=== PATIENT | male | born 1945 | race Caucasian/White ===

== ENCOUNTER 2018-01-02 20:33 | Inpatient (IN) | payer MEDICARE, MEDICAID ==
[~2018-01-02] VITALS: Ht 175.3 cm; Wt 54.4 kg
[2018-01-02] MEDS ORDERED: MAG HYDROX/AL HYDROX/SIMETH 30 ML UDC PO PRN (21:00)
[2018-01-02] MEDS ORDERED: ACETAMINOPHEN 325 MG TABLET PO PRN (21:00)
[2018-01-02] MEDS ORDERED: MAGNESIUM HYDROXIDE 30 ML UDC PO PRN (21:00)
[2018-01-02] MEDS ORDERED: LORAZEPAM 0.5 MG TABLET PO PRN (21:00)
--- NOTE | 2018-01-02 21:00 | NUR ---
ADMITTED A 72 Y/O MALE FROM [facility], ON 5150 HOLD DTS, PER HOLD PATIENT TOOK 40 NORCO PILLS. PATIENT STATED "I HAVE BEEN FEELING VERY DEPRESSED ABOUT ALL THE SURGERIES I HAVE TO FACE. I DO NOT WANT TO FACE THEM SO I ATTEMPTED TO KILL MYSELF". PATIENT ADMITTING DX. OF DEPRESSION AND MEDICAL DX. 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 PATIENT ARRIVE VIA GURNEY WITH 2 PERSONS ASSIST. PATIENT IS AMBULATORY WITH ASSISTANCE. UPON FACE TO FACE EVALUATION, PATIENT APPEARED ALERT AND ORIENTED X 3-4, CALM, COOPERATIVE, APPEARED DEPRESSED AND SAD. PATIENT STATED THAT HE DID IT BECAUSE HE WAS OVERWHELMED WITH EVERYTHING, HE WAS PANICKED AND HAS TOO MUCH STRESS, PATIENT CONTRACTED FOR SAFETY, DENIES SI AT THIS TIME, PATIENT COOPERATIVE WITH BODY CHECK, PICTURES AND SIGN PAPER WORKS. PATIENT HAS NO SOB, NO ACUTE DISTRESS, BREATHING EVEN AND UNLABORED, DENIES PAIN AND DISCOMFORT, BELONGINGS CHECK FOR CONTRABAND, NOTIFIED DR. VASQUEZ AND MANAGER INTEL AMANDA TO RECONCILE THE MEDICATION. ALL NEEDS ATTENDED ND MET, WILL CONTINUE TO MONITOR [id number] FOR SAFETY
[2018-01-02] MEDS ORDERED: NICO1PAT35 TD (21:06)
[2018-01-02] MEDS ORDERED: HYDR-552 PO (21:06)
[2018-01-02] MEDS ORDERED: FAMO-131 PO (21:06)
[2018-01-02] MEDS ORDERED: LACT-246 PO (21:06)
[2018-01-02] MEDS ORDERED: MULT1TAB73 PO (21:06)
[2018-01-02] MEDS ORDERED: OXYC5CAP18 PO (21:06)
[2018-01-02] MEDS ORDERED: DOCU-141 PO (21:06)
[2018-01-02] MEDS ORDERED: LEVO137T24 PO (21:06)
[2018-01-02] MEDS ORDERED: TAMS-12 PO (21:06)
[2018-01-02] MEDS ORDERED: DOCUSATE SODIUM 100 MG CAPSULE PO SCH (22:30)
[2018-01-02] MEDS: ZOLPIDEM TARTRATE 10 MG TABLET PO PRN (22:48)
[2018-01-02 23:08] VITALS: BP 119/67
[2018-01-03] MEDS: HYDROCODONE/APAP 5/325MG 1 EACH TABLET PO PRN ×3 (01:56→22:00)
[2018-01-03 06:45] LABS: BASOPHILS % (AUTO) 0.2 % (0.0-2.0); EOSINOPHILS % (AUTO) 2.4 % (0.0-6.0); HEMATOCRIT 36 % (39-51); HEMOGLOBIN 11.6 g/dL (13.5-17.5); LYMPHOCYTES # (AUTO) 1.8 /CMM (0.8-4.8); LYMPHOCYTES % (AUTO) 21.5 % (20.0-44.0); MEAN CORPUSCULAR HEMOGLOBIN 32 PG (26.0-33.0); MEAN CORPUSCULAR HGB CONC 32 g/dl (31.0-36.0); MEAN CORPUSCULAR VOLUME 98 fL (80-96); MONOCYTES # (AUTO) 0.6 /CMM (0.1-1.30); MONOCYTES % (AUTO) 6.6 % (2.0-12.0); NEUTROPHILS % (AUTO) 69.3 % (43.0-81.0); PLATELET COUNT (AUTO) 249 /CMM (150-450); RDW COEFFICIENT OF VARIATION 14.8 (11.5-15.0); WHITE BLOOD COUNT (AUTO) 8.6 K/uL (4.3-11.0)
[2018-01-03 06:52] LABS: CHOLESTEROL 122 mg/dL (<200); HDL CHOLESTEROL 44 mg/dL (40-60); LDL 64 mg/dL (0-99); TRIGLYCERIDES 117 mg/dL (30-150)
[2018-01-03 06:53] LABS: ALBUMIN 2.5 g/dL (3.4-5.0); BILIRUBIN,TOTAL 0.3 mg/dL (0.2-1.0); CALCIUM, SERUM 8.1 mg/dL (8.5-10.1); CREATININE 0.4 mg/dL (0.6-1.3); POTASSIUM 3.5 mmol/L (3.5-5.1); TOTAL PROTEIN, SERUM 5.2 g/dL (6.4-8.2)
[2018-01-03 08:00] VITALS: BP 108/71
[2018-01-03] MEDS: NICOTINE PATCH (21MG) 21 MG PATCH.TD24 TD SCH (08:08)
[2018-01-03] MEDS: MULTIVITAMINS,THERAGRAN 1 UDTAB TABLET PO SCH (08:08)
[2018-01-03] MEDS: LEVOTHYROXINE SODIUM 100 MCG TABLET PO SCH (08:08)
[2018-01-03] MEDS: FAMOTIDINE (20 MG) 20 MG TABLET PO SCH ×2 (08:08→22:01)
[2018-01-03] MEDS: DULOXETINE HCL 30 MG CAPSULE.DR PO SCH (15:28)
[2018-01-03 16:00] VITALS: BP 109/59
[2018-01-03] MEDS: TAMSULOSIN 0.4 MG CAP.SR.24H PO SCH (17:15)
[2018-01-03 20:00] VITALS: BP 120/72
[2018-01-03] MEDS: TRAZODONE 50 MG TABLET PO SCH (22:01)
[2018-01-04] MEDS: ZOLPIDEM TARTRATE 10 MG TABLET PO PRN ×2 (02:12→21:33)
[2018-01-04 08:00] VITALS: BP 111/63
[2018-01-04] MEDS ORDERED: MULTIVITAMINS,THERAGRAN 1 UDTAB TABLET PO SCH (09:00)
[2018-01-04] MEDS: FAMOTIDINE (20 MG) 20 MG TABLET PO SCH ×2 (09:38→20:56)
[2018-01-04] MEDS: LEVOTHYROXINE SODIUM 100 MCG TABLET PO SCH (09:38)
[2018-01-04] MEDS: MULTIVITAMINS,THERAGRAN 1 UDTAB TABLET PO SCH (09:39)
[2018-01-04] MEDS: NICOTINE PATCH (21MG) 21 MG PATCH.TD24 TD SCH (09:39)
[2018-01-04] MEDS: CALCIUM CARBONATE (1250) 500 MG TABLET PO SCH (09:39)
[2018-01-04] MEDS: DULOXETINE HCL 30 MG CAPSULE.DR PO SCH (09:39)
[2018-01-04] MEDS: HYDROCODONE/APAP 5/325MG 1 EACH TABLET PO PRN ×2 (13:08→20:56)
[2018-01-04 16:04] VITALS: BP 115/63
[2018-01-04] MEDS: TAMSULOSIN 0.4 MG CAP.SR.24H PO SCH (17:37)
[2018-01-04 20:00] VITALS: BP 108/65
--- NOTE | 2018-01-04 20:56 | NUR ---
GPS-RN PATIENT C/O LEFT LOWER LEG PAIN, ON A PAIN SCALE OF 7/10. ADMINISTERED NORCO 5/325MG PO ORDERED PER PT'S REQUEST. WILL CONTINUE TO MONITOR.
[2018-01-04] MEDS: TRAZODONE 50 MG TABLET PO SCH (21:03)
[2018-01-05 08:00] VITALS: BP 109/65
[2018-01-05] MEDS: LEVOTHYROXINE SODIUM 100 MCG TABLET PO SCH (08:44)
[2018-01-05] MEDS: FAMOTIDINE (20 MG) 20 MG TABLET PO SCH ×2 (08:44→21:06)
[2018-01-05] MEDS: DULOXETINE HCL 30 MG CAPSULE.DR PO SCH (08:44)
[2018-01-05] MEDS: CALCIUM CARBONATE (1250) 500 MG TABLET PO SCH (08:44)
[2018-01-05] MEDS: MULTIVITAMINS,THERAGRAN 1 UDTAB TABLET PO SCH (08:55)
[2018-01-05] MEDS: NICOTINE PATCH (21MG) 21 MG PATCH.TD24 TD SCH (08:55)
--- NOTE | 2018-01-05 11:43 | NUR ---
INITIAL DISCHARGE PLAN: Patient wishes to be discharged back home to [address] [place] [id number], pt will need transportation back home. SW will help form a safe and proper discharge in collaboration with MD.
[2018-01-05] MEDS: HYDROCODONE/APAP 5/325MG 1 EACH TABLET PO PRN ×2 (15:27→22:32)
--- NOTE | 2018-01-05 15:28 | NUR ---
RN NOTE :MEDICATED WITH NORCO FOR PAIN.C/O PAIN 02/04 WILL CONTINUE TO MONITOR .
[2018-01-05 16:00] VITALS: BP 112/70
[2018-01-05] MEDS: TAMSULOSIN 0.4 MG CAP.SR.24H PO SCH (18:03)
[2018-01-05 19:35] VITALS: BP 124/56
[2018-01-05] MEDS: TRAZODONE 50 MG TABLET PO SCH (21:06)
[2018-01-05] MEDS: ZOLPIDEM TARTRATE 10 MG TABLET PO PRN (21:55)
--- NOTE | 2018-01-05 22:35 | NUR ---
GPS-RN PATIENT C/O RIGHT LOWER LEG PAIN, ON A PAIN SCALE OF 7/10. ADMINISTERED NORCO 5/325MG PO ORDERED PER PT'S REQUEST. WILL CONTINUE TO MONITOR.
[2018-01-06 07:05] LABS: BASOPHILS % (AUTO) 0.5 % (0.0-2.0); EOSINOPHILS % (AUTO) 2.5 % (0.0-6.0); HEMATOCRIT 33 % (39-51); HEMOGLOBIN 10.7 g/dL (13.5-17.5); LYMPHOCYTES # (AUTO) 1.7 /CMM (0.8-4.8); LYMPHOCYTES % (AUTO) 22.9 % (20.0-44.0); MEAN CORPUSCULAR HEMOGLOBIN 31 PG (26.0-33.0); MEAN CORPUSCULAR HGB CONC 32 g/dl (31.0-36.0); MEAN CORPUSCULAR VOLUME 97 fL (80-96); MONOCYTES # (AUTO) 0.6 /CMM (0.1-1.30); MONOCYTES % (AUTO) 8.2 % (2.0-12.0); NEUTROPHILS % (AUTO) 65.9 % (43.0-81.0); PLATELET COUNT (AUTO) 289 /CMM (150-450); RDW COEFFICIENT OF VARIATION 14.6 (11.5-15.0); RED BLOOD CELL COUNT(AUTO) 3.42 MIL/uL (4.5-6.0); WHITE BLOOD COUNT (AUTO) 7.5 K/uL (4.3-11.0)
[2018-01-06 07:34] LABS: ALBUMIN 2.6 g/dL (3.4-5.0); BILIRUBIN,TOTAL 0.3 mg/dL (0.2-1.0); CALCIUM, SERUM 8.2 mg/dL (8.5-10.1); CREATININE 0.5 mg/dL (0.6-1.3); POTASSIUM 3.5 mmol/L (3.5-5.1); TOTAL PROTEIN, SERUM 5.3 g/dL (6.4-8.2)
[2018-01-06 08:10] VITALS: BP 124/57
[2018-01-06] MEDS: LEVOTHYROXINE SODIUM 100 MCG TABLET PO SCH (08:24)
[2018-01-06] MEDS: NICOTINE PATCH (21MG) 21 MG PATCH.TD24 TD SCH (08:24)
[2018-01-06] MEDS: MULTIVITAMINS,THERAGRAN 1 UDTAB TABLET PO SCH (08:24)
[2018-01-06] MEDS: DULOXETINE HCL 30 MG CAPSULE.DR PO SCH (08:24)
[2018-01-06] MEDS: CALCIUM CARBONATE (1250) 500 MG TABLET PO SCH (08:24)
[2018-01-06] MEDS: FAMOTIDINE (20 MG) 20 MG TABLET PO SCH ×2 (08:24→20:50)
[2018-01-06] MEDS ORDERED: Z GUARD REMEDY 2 OZ OINT TP PRN (10:00)
--- NOTE | 2018-01-06 10:01 | NUR ---
WOUND CARE CONSULT: LIMITED ASSESSMENT DUE TO PT PRIVACY REQUEST. SACRAL AREA IS BONY WITH SOME IRRITATED PEELING SKIN NOTED TO GLUTEAL CREASE. PT IS AMBULATORY AND CONTINENT. PT HAS LEFT BKA STUMP WITH BLANCHABLE REDNESS. PT USING PROSTHESIS. ALL SKIN PROTECTION RECOMMENDATIONS DISCUSSED WITH NURSING STAFF. WILL SEE PRN. OLEARY IN AGREEMENT WITH PLAN OF CARE. Addendum: 01/06/18 at 1005 by FREIDA CRSOS WNDNU Amended: Links added.
[2018-01-06] MEDS: Z GUARD REMEDY 2 OZ OINT TP SCH (10:30)
[2018-01-06] MEDS: HYDROCODONE/APAP 5/325MG 1 EACH TABLET PO PRN ×2 (12:24→20:52)
[2018-01-06] MEDS ORDERED: LORAZEPAM 1 MG TABLET PO PRN (14:30)
[2018-01-06] MEDS ORDERED: LORAZEPAM 0.5 MG TABLET PO PRN (15:00)
[2018-01-06 16:06] VITALS: BP 134/76
[2018-01-06] MEDS: TAMSULOSIN 0.4 MG CAP.SR.24H PO SCH (17:14)
[2018-01-06 19:32] VITALS: BP 125/63
--- NOTE | 2018-01-06 20:15 | NUR ---
RECIEVED ALERT AND ORIENTATED SPEECH CLEAR SITTER AT THE BEDSIDE PROSTESIS AT THE BEDSIDE SEEN
[2018-01-06] MEDS: TRAZODONE 50 MG TABLET PO SCH (21:37)
[2018-01-06] MEDS: ZOLPIDEM TARTRATE 10 MG TABLET PO PRN (21:38)
--- NOTE | 2018-01-07 05:59 | NUR ---
SLEPT MOST OF THIS 12 HOURS, AWAKENENING TO USE THE URINAL. COOPERATIVE AND QUIEST THRU THE NIGHT
[2018-01-07 08:00] VITALS: BP 111/66
[2018-01-07] MEDS: CALCIUM CARBONATE (1250) 500 MG TABLET PO SCH (09:00)
[2018-01-07] MEDS: FAMOTIDINE (20 MG) 20 MG TABLET PO SCH ×2 (09:00→20:55)
[2018-01-07] MEDS: MULTIVITAMINS,THERAGRAN 1 UDTAB TABLET PO SCH (09:00)
[2018-01-07] MEDS: LEVOTHYROXINE SODIUM 100 MCG TABLET PO SCH (09:00)
[2018-01-07] MEDS: DULOXETINE HCL 30 MG CAPSULE.DR PO SCH (09:01)
[2018-01-07] MEDS: HYDROCODONE/APAP 5/325MG 1 EACH TABLET PO PRN ×3 (09:01→20:55)
[2018-01-07] MEDS: NICOTINE PATCH (21MG) 21 MG PATCH.TD24 TD SCH (09:02)
[2018-01-07] MEDS: Z GUARD REMEDY 2 OZ OINT TP SCH (09:02)
[2018-01-07 16:00] VITALS: BP 130/76
[2018-01-07] MEDS: TAMSULOSIN 0.4 MG CAP.SR.24H PO SCH (17:03)
--- NOTE | 2018-01-07 18:03 | NUR ---
RN NOTES PATIENT A/OX4, DENIES SI/HI AT THIS TIME, BREATHING EVEN AND UNLABORED, REPORT GIVEN TO MARTITA FOR CONTINUITY OF CARE. PATIENT TRANSFERRED TO ROOM 220A.
--- NOTE | 2018-01-07 19:25 | NUR ---
RN NOTES: RECEIVED PT ON ROOM AIR AND IS LAYING IN BED COMFORTABLY. SITTER AT BEDSIDE. NO S/S OF DISTRESS NOTED. BED KEPT IN LOW, LOCKED POSITION, AND SIDE RAILS X 2UP. WILL CONTINUE TO MONITOR PT.
[2018-01-07 20:13] VITALS: BP 140/79
--- NOTE | 2018-01-07 20:55 | NUR ---
RN NOTES: PT COMPLAINING OF L KNEE/THIGH, NECK, AND L ARM PAIN. PT WAS ADMINISTERED NORCO 5. WILL CONTINUE TO MONITOR PT.
--- NOTE | 2018-01-07 20:57 | NUR ---
RN NOTES: PT COMPLAINING OF L KNEE/THIGH, NECK, AND L ARM PAIN 7/10. PT WAS ADMINISTERED NORCO 5. WILL CONTINUE TO MONITOR PT.
[2018-01-07] MEDS: TRAZODONE 50 MG TABLET PO SCH (21:00)
[2018-01-07] MEDS: ZOLPIDEM TARTRATE 10 MG TABLET PO PRN (22:01)
--- NOTE | 2018-01-07 22:01 | NUR ---
RN NOTES: PT REQUESTING FOR HIS AMBIEN. PT WAS ADMINISTERED AMBIEN 10MG PO. WILL CONTINUE TO MONITOR PT.
[2018-01-08 08:00] VITALS: BP 123/72
[2018-01-08] MEDS: FAMOTIDINE (20 MG) 20 MG TABLET PO SCH ×2 (08:32→21:19)
[2018-01-08] MEDS: NICOTINE PATCH (21MG) 21 MG PATCH.TD24 TD SCH (08:32)
[2018-01-08] MEDS: LEVOTHYROXINE SODIUM 100 MCG TABLET PO SCH (08:32)
[2018-01-08] MEDS: CALCIUM CARBONATE (1250) 500 MG TABLET PO SCH (08:32)
[2018-01-08] MEDS: DULOXETINE HCL 30 MG CAPSULE.DR PO SCH (08:32)
[2018-01-08] MEDS: MULTIVITAMINS,THERAGRAN 1 UDTAB TABLET PO SCH (08:32)
[2018-01-08] MEDS: Z GUARD REMEDY 2 OZ OINT TP SCH (08:33)
[2018-01-08] MEDS: HYDROCODONE/APAP 5/325MG 1 EACH TABLET PO PRN ×3 (08:39→21:19)
--- NOTE | 2018-01-08 08:39 | NUR ---
GPS RN NOTE: RECEIVED PATIENT LAYING IN BED, 1;1 SITTER AT BED SIDE,PT PARANOID, RESTLESS AT TIMES, REFUSED SHOWER, A&OX3, COMPLIANT WITH MEDICATIONS C/O OF LEFT KNEE,LEFT LEG PAIN 12/05 NORCO GIVEN PER ORDER,PT DENIES SI/HI AT THIS TIME,ISOLATIVE, FLAT AFFECT, DEPRESSED MOOD, WILL CONTINUE TO MONITOR Q15 MINS FOR SAFETY AND BEHAVIOR.
--- NOTE | 2018-01-08 11:10 | NUR ---
JOAN contacted pts son Alden [phone] for discharge planning. Pts son stated he was unable to assist with transportation because he lives in [place].
--- NOTE | 2018-01-08 11:27 | NUR ---
JOAN contacted pts friend Luciana [phone] who stated she would be unable to provide transportation for pt. Luciana suggested pt be transported home via [email or web address]. Addendum: 01/08/18 at 1334 by SHARRI FRANCO Correction Friends name above is JOAN Bush also left voicemail to friend Luicana [phone].
--- NOTE | 2018-01-08 13:34 | NUR ---
SW received phone call from pt friend Luciana [phone] who stated she would not be able to transport pt home.
[2018-01-08 16:37] VITALS: BP 126/75
[2018-01-08] MEDS: TAMSULOSIN 0.4 MG CAP.SR.24H PO SCH (17:05)
[2018-01-08] MEDS: ZOLPIDEM TARTRATE 10 MG TABLET PO PRN (21:19)
[2018-01-08] MEDS: TRAZODONE 50 MG TABLET PO SCH (21:20)
--- NOTE | 2018-01-08 22:55 | NUR ---
RECEIVE PT FROM GPS TRANSFER TO FOR GPS OVERFLOW PT ON W/C WITH 1 RN AND 1:1 SITTER, PATIENT A/O X4, NO S/S OF DISTRESS. BREATHING EVEN AND UNLABORED. NO COMPLAIN OF PAIN, SAFETY MEASURES IN PLACE, WILL MONITOR PT BEHAVIOR.
[2018-01-08 23:00] VITALS: BP 118/70
[2018-01-08 23:14] VITALS: BP 118/70
--- NOTE | 2018-01-09 06:58 | NUR ---
PT COMFORTABLY ASLEEP AND EASILY AWAKEN, STABLE, NOT IN DISTRESS. RESPIRATION EVEN AND UNLABORED. KEPT CLEAN AND DRY AND COMFORTABLE, ALL NURSING CARE RENDERED. NEEDS ATTENDED AND ANTICIPATED. ON LOW BED AT ALL TIMES TO ENSURE SAFETY. SAFE HAZARD FREE ENVIRONMENT PROVIDED. CALL LIGHT WITHIN EASY TO REACH. WILL ENDORSE NEXT SHIFT CONTINUITY OF CARE.
--- NOTE | 2018-01-09 08:16 | NUR ---
GPS OV RN NOTES PATIENT RECEIVED RESTING INSIDE ROOM. AWAKE, ALERT AND ORIENTED, VERBALLY RESPONSIVE AND RESPONDS TO VERBAL AND TACTILE STIMULI. BREATHING EVEN AND UNLABORED. NO CHANGES IN LOC NOTED AT THIS TIME. PATIENT DENIES ANY PAIN OR DISCOMFORT. SITTER AT BEDSIDE. PATIENT DENIES SI AT THIS TIME. REMAINS CALM AND RELAXED. WILL CONTINUE TO MONITOR. BED LOCKED AND IN LOW POSITION. BILATERAL UPPER SIDE RAILS UP AND LOCKED.
[2018-01-09 08:33] VITALS: BP 104/70
[2018-01-09] MEDS: CALCIUM CARBONATE (1250) 500 MG TABLET PO SCH (08:34)
[2018-01-09] MEDS: DULOXETINE HCL 30 MG CAPSULE.DR PO SCH (08:35)
[2018-01-09] MEDS: MULTIVITAMINS,THERAGRAN 1 UDTAB TABLET PO SCH (08:35)
[2018-01-09] MEDS: FAMOTIDINE (20 MG) 20 MG TABLET PO SCH ×2 (08:35→21:32)
[2018-01-09] MEDS: LEVOTHYROXINE SODIUM 100 MCG TABLET PO SCH (08:35)
[2018-01-09] MEDS: NICOTINE PATCH (21MG) 21 MG PATCH.TD24 TD SCH (08:37)
[2018-01-09] MEDS: Z GUARD REMEDY 2 OZ OINT TP SCH (08:38)
[2018-01-09] MEDS: HYDROCODONE/APAP 5/325MG 1 EACH TABLET PO PRN ×3 (09:34→21:48)
[2018-01-09 16:11] VITALS: BP 141/75
[2018-01-09] MEDS: TAMSULOSIN 0.4 MG CAP.SR.24H PO SCH (17:11)
--- NOTE | 2018-01-09 19:00 | NUR ---
GPS RN OPENING NOTE RECEIVE PATIENT AWAKE IN BED, A/O X 3, NO SOB OR DISTRESS NOTED, CALL LIGHT WITHIN REACH. SAFETY MEASURES IMPLEMENTED. WILL CONTINUE TO MONITOR THROUGHOUT SHIFT.
--- NOTE | 2018-01-09 19:28 | NUR ---
GPS OV RN NOTES PATIENT RESTING INSIDE ROOM. AWAKE, ALERT AND ORIENTED. VERBALLY RESPONSIVE AND RESPONDS TO VERBAL AND TACTILE STIMULI. NO CHANGES IN LOC NOTED. PATIENT CALM AND RELAXED. NO SOB OR ACUTE DISTRESS. PATIENT DENIES ANY PAIN OR DISCOMFORT. SITTER AT BEDSIDE. ENDORSED TO INCOMING SHIFT FOR JOLYNN. BED LOCKED AND IN LOW POSITION. BILATERAL UPPER SIDE RAILS UP AND LOCKED.
[2018-01-09 20:00] VITALS: BP 122/77
--- NOTE | 2018-01-09 20:20 | NUR ---
PT TRANSFERRED TO 220-1 NO INCIDENT HAPPENED REPORT GIVEN TO GPS NIGHT RN
--- NOTE | 2018-01-09 20:35 | NUR ---
RECEIVED TRANSFERRED FROM MS-2, AWAKE, ALERT, ORIENTED X3-4, SHOWS NO S/S OF ANY PAIN. STABLE CONDITION, CALM AND COOPERATIVE. WILL CONTINUE TO MONITOR Q 15 MINS. TO MAINTAIN SAFETY
[2018-01-09] MEDS: TRAZODONE 50 MG TABLET PO SCH (21:32)
--- NOTE | 2018-01-09 21:37 | NUR ---
ATIVAN 1 MG TAB PO GIVEN PER PATIENT'S REQUEST
--- NOTE | 2018-01-09 21:52 | NUR ---
CX/O PAIN RIGHT LEG, 8/10 ON PAIN SCALE, NORCO 5/325 MG TAB PO GIVEN.
[2018-01-10 08:00] VITALS: BP 117/67
[2018-01-10] MEDS: NICOTINE PATCH (21MG) 21 MG PATCH.TD24 TD SCH (09:09)
[2018-01-10] MEDS: DULOXETINE HCL 30 MG CAPSULE.DR PO SCH (09:09)
[2018-01-10] MEDS: LEVOTHYROXINE SODIUM 100 MCG TABLET PO SCH (09:09)
[2018-01-10] MEDS: FAMOTIDINE (20 MG) 20 MG TABLET PO SCH ×2 (09:09→21:49)
[2018-01-10] MEDS: CALCIUM CARBONATE (1250) 500 MG TABLET PO SCH (09:09)
[2018-01-10] MEDS: Z GUARD REMEDY 2 OZ OINT TP SCH (09:10)
[2018-01-10] MEDS: MULTIVITAMINS,THERAGRAN 1 UDTAB TABLET PO SCH (09:10)
[2018-01-10] MEDS: HYDROCODONE/APAP 5/325MG 1 EACH TABLET PO PRN ×2 (09:10→21:50)
[2018-01-10 16:00] VITALS: BP 115/71
[2018-01-10] MEDS: TAMSULOSIN 0.4 MG CAP.SR.24H PO SCH (17:07)
[2018-01-10 20:00] VITALS: BP 118/67
[2018-01-10] MEDS: TRAZODONE 50 MG TABLET PO SCH (21:49)
[2018-01-10] MEDS: ZOLPIDEM TARTRATE 10 MG TABLET PO PRN (23:14)
[2018-01-11 08:00] VITALS: BP 113/72
[2018-01-11] MEDS: NICOTINE PATCH (21MG) 21 MG PATCH.TD24 TD SCH (09:10)
[2018-01-11] MEDS: DULOXETINE HCL 30 MG CAPSULE.DR PO SCH (09:10)
[2018-01-11] MEDS: MULTIVITAMINS,THERAGRAN 1 UDTAB TABLET PO SCH (09:10)
[2018-01-11] MEDS: FAMOTIDINE (20 MG) 20 MG TABLET PO SCH ×2 (09:10→22:02)
[2018-01-11] MEDS: CALCIUM CARBONATE (1250) 500 MG TABLET PO SCH (09:10)
[2018-01-11] MEDS: LEVOTHYROXINE SODIUM 100 MCG TABLET PO SCH (09:10)
[2018-01-11] MEDS: Z GUARD REMEDY 2 OZ OINT TP SCH (09:11)
[2018-01-11] MEDS: HYDROCODONE/APAP 5/325MG 1 EACH TABLET PO PRN ×2 (09:45→20:34)
--- NOTE | 2018-01-11 09:46 | NUR ---
RN NOTE :MEDICATED WITH NORCO FOR PAIN.C/O PAIN 02/04 WILL CONTINUE TO MONITOR .
[2018-01-11 16:00] VITALS: BP 120/72
[2018-01-11 19:56] VITALS: BP 119/63
[2018-01-11 20:00] VITALS: BP 119/63
[2018-01-11] MEDS: ZOLPIDEM TARTRATE 10 MG TABLET PO PRN (22:02)
[2018-01-11] MEDS: TRAZODONE 50 MG TABLET PO SCH (22:02)
[2018-01-12 08:40] VITALS: BP 137/65
[2018-01-12] MEDS: DULOXETINE HCL 30 MG CAPSULE.DR PO SCH (09:21)
[2018-01-12] MEDS: CALCIUM CARBONATE (1250) 500 MG TABLET PO SCH (09:22)
[2018-01-12] MEDS: MULTIVITAMINS,THERAGRAN 1 UDTAB TABLET PO SCH (09:22)
[2018-01-12] MEDS: LEVOTHYROXINE SODIUM 100 MCG TABLET PO SCH (09:22)
[2018-01-12] MEDS: FAMOTIDINE (20 MG) 20 MG TABLET PO SCH ×2 (09:22→21:02)
[2018-01-12] MEDS: HYDROCODONE/APAP 5/325MG 1 EACH TABLET PO PRN (09:25)
[2018-01-12] MEDS: NICOTINE PATCH (21MG) 21 MG PATCH.TD24 TD SCH (09:27)
[2018-01-12] MEDS: Z GUARD REMEDY 2 OZ OINT TP SCH (09:27)
[2018-01-12 16:00] VITALS: BP 136/72
[2018-01-12] MEDS: TAMSULOSIN 0.4 MG CAP.SR.24H PO SCH (17:23)
[2018-01-12 19:42] VITALS: BP 129/67
[2018-01-12 20:00] VITALS: BP 129/67
[2018-01-12] MEDS: TRAZODONE 50 MG TABLET PO SCH (21:02)
--- NOTE | 2018-01-12 21:05 | NUR ---
RN NOTES: RECEIVED NORCO FOR 710 LEG PAIN. MONITORED FOR RESPONSE TO MED. 2200 PATIENT NOW REQUESTING FOR SLEEPING PILL; BHARAT ORDERED. TO REASSESS.
[2018-01-12] MEDS: ZOLPIDEM TARTRATE 10 MG TABLET PO PRN (22:06)
[2018-01-13 08:00] VITALS: BP 119/72
[2018-01-13] MEDS: LEVOTHYROXINE SODIUM 100 MCG TABLET PO SCH (08:05)
[2018-01-13] MEDS: NICOTINE PATCH (21MG) 21 MG PATCH.TD24 TD SCH (08:05)
[2018-01-13] MEDS: MULTIVITAMINS,THERAGRAN 1 UDTAB TABLET PO SCH (08:05)
[2018-01-13] MEDS: FAMOTIDINE (20 MG) 20 MG TABLET PO SCH (08:05)
[2018-01-13] MEDS: DULOXETINE HCL 30 MG CAPSULE.DR PO SCH (08:06)
[2018-01-13] MEDS: CALCIUM CARBONATE (1250) 500 MG TABLET PO SCH (08:19)
[2018-01-13] MEDS: Z GUARD REMEDY 2 OZ OINT TP SCH (08:19)
[2018-01-13] MEDS: HYDROCODONE/APAP 5/325MG 1 EACH TABLET PO PRN (10:27)
--- NOTE | 2018-01-13 10:27 | NUR ---
NURSING NOTE PT C/O LEFT LEG PAIN, 8/10 PAIN, REQUESTING NORCO. ADMINISTERED NORCO 5/325MG PO PER MD ORDER. VS STABLE. WILL CONTINUE TO MONITOR.
--- NOTE | 2018-01-13 11:40 | NUR ---
NURSING DISCHARGE NOTE: PT WAS DISCHARGED TODAY AT 1140 TO [facility]IA [facility] AND WILL BE GOING HOME TO [id number] [place] [address], [place] [address]. PT'S FRIEND LEONEL HAS BEEN NOTIFIED. PT LEFT THE UNIT ACCOMPANIED BY ONE STAFF AMBULATORY USING HIS OWN CANE. TAXI VOUCHER WAS GIVEN TO ALONZO CHAPA. PT HAS SIGNED ALL PAPERWORK. ALL BELONGINGS WERE RETURNED TO PT. ALL DISCHARGE INSTRUCTIONS WERE EXPLAINED TO PT AND PT VERBALIZED UNDERSTANDING OF INSTRUCTIONS. PT WAS ALSO GIVEN PRESCRIPTIONS AND PRESCRIPTIONS WERE ALSO EXPLAINED TO PT AND PT VERBALIZED UNDERSTANDING. PT REFUSED SKIN ASSESSMENT AND PICTURES TO BE TAKEN. DISCHARGE ORDERS WERE OBTAINED FROM DR. VASQUEZ. PT IS MEDICALLY STABLE FOR DISCHARGE PER DR. GUZMAN. VS STABLE. PT IS CALM, COOPERATIVE, A&OX4, DENIES SI/HI AT THE TIME OF DISCHARGE. PT WILL FOLLOW UP WITH PRIMARY PCP ONCE DISCHARGED.
--- NOTE | 2018-01-13 11:56 | NUR ---
DISCHARGE NOTE: Pt was discharged at 11:30am to [facility] Address: [address] [place] [address] via [employer] voucher and will be going home to [address] [place], [place] [id number]. Pts friend Eleazar [phone] has been notified and will pick pt up at [facility] [place] in [place]. Pts mood was anxious with congruent affect. Pt denied suicidal/homicidal ideations and denied visual/auditory hallucinations. For smoking cessation, patient will be referred to the [employer] or [employer] [id number]. Pt will schedule a follow up appointment with a Psychiatrist at the [facility] Address: [address] [place] [address] and a follow up appointment with Aquatic Centre Manager: Dr. Johnson [facility] Address: [address] [place] [address] . The multidisciplinary exitcare form was done, printed, signed, and given to the patient.
== END 2018-01-13 12:07 | disposition home or self-care (01) | DRG 885 ==
LOC: GPS 20:33 → GPSOV2 01-06 18:27 → GPS 01-07 17:54 → GPSOV2 01-08 22:23 → GPS 01-09 20:16
PROVIDERS: ADMIT Psychiatry & Neurology Psychiatry; ATTEND Nurse Practitioner Acute Care
DX: F33.2 Major depressive disorder, recurrent severe without psychotic features (principal); E43 Unspecified severe protein-calorie malnutrition; R64 Cachexia; Z68.1 Body mass index [BMI] 19.9 or less, adult; E03.9 Hypothyroidism, unspecified; K21.9 Gastro-esophageal reflux disease without esophagitis; F29 Unspecified psychosis not due to a substance or known physiological condition; D64.9 Anemia, unspecified; N40.0 Benign prostatic hyperplasia without lower urinary tract symptoms; K40.90 Unilateral inguinal hernia, without obstruction or gangrene, not specified as recurrent; G89.4 Chronic pain syndrome; Z89.512 Acquired absence of left leg below knee; F17.210 Nicotine dependence, cigarettes, uncomplicated
CPT/HCPCS: 36415; 80053-TC; 80061-TC; 85025-TC; 87081-TC; A4606; Z7610